=== PATIENT | female | born 1935 | race Caucasian/White ===

== ENCOUNTER 2016-12-17 21:03 | Emergency (ER) | payer MEDICARE ==
[2016-12-17 21:11] VITALS: RESP 18
[2016-12-17] MEDS ORDERED: SODIUM CHLORIDE 0.9% 500 ML 500 ML IV ONE (21:42)
[2016-12-17] MEDS ORDERED: SODIUM CHLORIDE 0.9% FLUSH 10 ML SOL IV PRN (21:42)
[2016-12-17 21:52] LABS: BASOPHILS % (AUTO) 0 % (0-3); EOSINOPHILS % (AUTO) 0 % (0-9); HEMATOCRIT 37 % (35-47); MEAN CORPUSCULAR HGB CONC 36.1 gm/dl (32.0-36.0); MEAN CORPUSCULAR VOLUME 89 fL (81-99); MONOCYTES % (AUTO) 3.6 % (0-12); NEUTROPHILS % (AUTO) 92.4 % (37-80)
[2016-12-17] MEDS ORDERED: ONDANSETRON HCL 4 MG/2 ML SOL IV ONE (21:55)
[2016-12-17 21:57] LABS: APPEARANCE,URINE Clear; BILIRUBIN,URINE NEGATIVE (NEGATIVE); COLOR,URINE Yellow; GLUCOSE, URINE (UA) NEGATIVE (NEGATIVE); KETONES,URINE 1+ (NEGATIVE); LEUKOCYTE ESTERASE ,URINE NEGATIVE (NEGATIVE); NITRATE,URINE NEGATIVE (NEGATIVE); OCCULT BLOOD,URINE TRACE INTACT (NEG-TRACE); UROBILINOGEN,URINE 0.2 (0.2-1.0 EU)
[2016-12-17] MEDS ORDERED: ONDANSETRON HCL 4 MG/2 ML SOL ONE (21:57)
[2016-12-17 22:04] LABS: ALBUMIN 3.2 gm/dl (3.4-5.0); ALT 18 IU/L (14-63); CALCIUM 9.3 mg/dl (8.5-10.1); GLOM FILT RATE 73 mL/min (>60); POTASSIUM 3.9 mMol/L (3.5-5.1); SODIUM 131 mMol/L (136-145)
[2016-12-17 22:07] LABS: WBC,URINE 0-2 (0-5AV/HPF)
[2016-12-17 23:00] LABS: MAGNESIUM 1.8 mg/dl (1.8-2.4); PHOSPHORUS 3.9 mg/dl (2.6-4.7)
[2016-12-18] MEDS ORDERED: SODIUM CHLORIDE 0.9% 1000ML 1,000 ML IV ONE (01:15)
[2016-12-18 01:19] VITALS: TEMP 97.8
[2016-12-18 02:18] VITALS: BP 155/88; PULSE 88; O2SAT 93
== END 2016-12-18 02:15 | disposition short-term general hospital (02) | DRG 390 ==
LOC: ED 21:03
DX: K56.69 Other intestinal obstruction (principal)
CPT/HCPCS: 71010; 74176; 80053; 81001; 83735; 84100; 84484; 85025; 93005; 96365; 96366; 96374; 99284; 99285; J2405